=== PATIENT | female | born 1975 | race Caucasian/White ===

== ENCOUNTER 2024-01-21 08:39 | Emergency (ER) | payer MEDICAID, MEDICARE ==
[~2024-01-21] VITALS: Ht 134.6 cm; Wt 39.9 kg
[2024-01-21] MEDS: ACETAMINOPHEN 500 MG TABLET PO ONE (09:00)
[2024-01-21] MEDS ORDERED: BACITRACIN ZINC OINT 15 GM TUBE ONE (09:53)
[2024-01-21] MEDS ORDERED: ACETAMINOPHEN 500 MG TABLET ONE (09:53)
[2024-01-21] MEDS: BACITRACIN ZINC OINT 15 GM TUBE TOP STA (10:00)
[2024-01-21 10:01] VITALS: BP 139/70; O2SAT 99
== END 2024-01-21 10:05 | disposition home or self-care (01) ==
LOC: ER 08:39
DX: S00.83XA Contusion of other part of head, initial encounter (principal); Z88.7 Allergy status to serum and vaccine; Y04.8XXA Assault by other bodily force, initial encounter; Y93.89 Activity, other specified; Y92.89 Other specified places as the place of occurrence of the external cause; Y99.8 Other external cause status
CPT/HCPCS: 70450; 70486; 72125; A4606; A4663; A9150